=== PATIENT | female | born 1950 | race Asian ===

== ENCOUNTER 2016-08-26 07:34 | Emergency (ER) | payer MEDICAID, OTHER ==
--- NOTE | 2016-08-26 07:40 | ED Physician Chart ---
Chief Complaint/HPI - Patient Information Date Seen:: 08/26/16 Time Seen:: 07:45 Chief Complaint:: sore throat History of Present Illness:: 66-year-old female with hypothyroidism, complains of acute, constant, worsening , moderate, 7 out of 10 at worst, aching and scratching, worse with swallowing, nonradiating, sore throat 4 days. Has associated upper back ache, nonproductive cough and nasal congestion. Allergies:: Allergies Allergy/AdvReac Type Severity Reaction Status Date / Time MDX Nka - No Known Allergies Allergy Verified 07/31/15 17:34 [Nka - No Known Allergies] Historian:: Patient Review:: Nurse's Note Reviewed Review of Systems - Review of Systems Other: Complete system review otherwise unremarkable except as noted in HPI. Past Medical History - Past Medical History Past Medical History: Thyroid disorder Family History: None Social History: Non Smoker, No Alcohol, No Drug Use, Employed Surgical History: None Psychiatricy History: None Medication: Reviewed Family Medical History - Family Member Father History Unknown: Yes Ethnicity: Non- Living Status: Physical Exam - Physical Examination Other:: INITIAL VITAL SIGNS: Reviewed by me GENERAL: Alert and interactive. No acute distress HEAD: Head is normocephalic and atraumatic EYES: EOMI. . No scleral icterus. No conjunctival injection ENT: Moist mucous membranes. Posterior pharynx is erythematous. Tonsils are + 1 edematous. NECK: Supple. No masses. Full range of motion RESPIRATORY: No tachypnea. Prolonged expiratory phase worse on the right than left. No wheezing, rales, or rhonchi CV: Regular rate and rhythm. No murmurs, rubs, or gallops ABDOMEN: Soft, non-distended, non-tender. No guarding. No rebound. No masses. EXTREMITIES: No deformity. No cyanosis. No edema. SKIN: Warm and dry. No obvious rashes. NEUROLOGIC: Alert and oriented. Face is symmetric. Speech is normal. Moves all extremities equally. Motor and sensory distally intact. ED Septic Shock - . Is Septic Shock (SBP<90, OR Lactate>4 mmol\L) present?: No Reassessment (Disposition) - Reassessment Reassessment:: Patient appears to have bronchitis and pharyngitis. Lung sounds are clear but with prolonged expiratory phase. Tonsils are edematous. Given her advanced age we will cover with antibiotics. Gave intramuscular Toradol here in the ER. Patient had some relief of her upper back pain and felt overall improved. Provided prescription for azithromycin, prednisone, antitussive. Follow up with PCP 1-2 days. Gave return to ER precautions. Patient says she understands and agrees the plan. Reassessment Condition:: Improved - Diagnosis Diagnosis:: Acute bronchitis, bacterial unspecified Acute pharyngitis, unspecified - Aftercare/Follow up Instructions Aftercare/Follow-Up Instructions:: Counseled pt regarding lab results/diagnosis & need follow up, Refer to Discharge Instructions Medication Prescribed:: Azithromycin Prednisone Phenergan with codeine - Patient Disposition Discharge/Transfer:: Home Time:: 08:03 Condition at Disposition:: Improved ED Discharge Plan - Patient Disposition Admit/Discharge/Transfer: PT DISCHARGED HOME Condition at Disposition: Improved Instructions: Viral and Bacterial Pharyngitis, Bronchitis, [id number]
== END 2016-08-26 08:22 | disposition home or self-care (01) ==
LOC: ER 07:34
DX: J20.8 Acute bronchitis due to other specified organisms (principal); J02.9 Acute pharyngitis, unspecified
CPT/HCPCS: 99283; 96372; J1885; Z7502